=== PATIENT | male | born 1975 | race Caucasian/White ===

== ENCOUNTER → 2016-07-06 | Outpatient (CLI) | payer OTHER ==
--- NOTE | 2016-07-06 17:43 | DX ---
Cervical spine AP lateral flexion and extension 0907 hours. History: Neck pain and numbness. Disk replacement. Findings: Disk replacement prosthesis is seen at C5-C6 segment level. There is articulation of the C5 -C6 disk replacement that does articulate with flexion and extension. There are no subluxations with flexion and extension throughout the cervical spine. There is mild to moderate intervertebral disk sp deb narrowing at C6-C7 with small anterior marginal osteophytes. The remainder the disk spaces appear to be normal. Precervical soft tissues appear relatively normal. Impression: 1. Normal articulation is seen at the C5-C6 disk replacement prosthesis. 2. Mild to moderate disk space narrowing at C6-C7 with anterior marginal osteophytes.
== END ==
LOC: FIMAGING 08:50
PROVIDERS: ATTEND Neurological Surgery
DX: M47.892 Other spondylosis, cervical region (principal); Z96.89 Presence of other specified functional implants